=== PATIENT | female | born 1950 | race Caucasian/White ===

== ENCOUNTER → 2017-03-01 | Outpatient (CLI) | payer MEDICARE ==
--- NOTE | 2017-03-01 11:57 | MM ---
Reason for exam: additional evaluation requested from abnormal screening. Last mammogram was performed less than 1 month ago. History: Benign excisional biopsy of the left breast, 2010. Physical Findings: Nurse did not find any significant physical abnormalities on exam. MG 3D Work Up W/Cad KSENIA Bilateral LM view(s) were taken. CC with magnification and LM with magnification view(s) were taken of the right breast. Spot compression MLO view(s) were taken of the left breast. Prior study comparison: February 16, 2017, bilateral MG screening mammo w CAD. The breast tissue is heterogeneously dense. This may lower the sensitivity of mammography. There is a 5mm group of calcifications in the central outer right breast not seen on priors. No suspicious abnormality on the left breast. The previously seen abnormality on the left improves on additional views. These results were verbally communicated with the patient and result sheet given to the patient on 03/01/17. ASSESSMENT: Suspicious, BI-RAD 4 RECOMMENDATION: Stereotactic core biopsy of the right breast. Called with mammographic findings and has scheduled an appointment for the patient for 03/09/17 at 11:[address] Nuñez. PRELIMINARY REPORT CALLED AND FAXED TO DR. NUÑEZ ON 03/01/17.
== END | disposition home or self-care (01) ==
LOC: RADMAMWWP 10:08
PROVIDERS: ATTEND Family Medicine
DX: R92.8 Other abnormal and inconclusive findings on diagnostic imaging of breast (principal)
CPT/HCPCS: G0204; G0279

== ENCOUNTER → 2017-04-13 | Day surgery (SDC) | payer MEDICARE ==
[2017-04-13 07:20] VITALS: RESP 16; BMI 23.9
[2017-04-13 08:55] VITALS: BP 129/75; PULSE 69; TEMP 98.2
--- NOTE | 2017-04-13 09:43 | PCN ---
PROCEDURE NOTE The patient is a 66-year-old white female who underwent a bilateral mammogram which revealed an area of concern in the right breast. The lesion is in the mid-depth of the breast, closer to the lateral area of the breast. The patient had an area of microcalcifications of concern at this site in the right breast. The patient had undergone physical examination and on examination, no dominant mass or nodules of concern were identified in either breast and no axillary adenopathy of concern in either breast. The patient was taken to the stereotactic core biopsy room where after review of the mammogram, it was determined that the area of concern would be approached via a lateral to medial approach. The patient was placed in the stereo unit and the area of concern was identified. The skin was prepped using Betadine; 1% lidocaine was used to anesthetize the area of concern. A vacuum assisted needle was driven to the correct coordinates and pre fire views were obtained. The pre fire views appeared that the needle would be in the correct location. The needle was fired and postfire views were obtained. The needle was indeed in the correct location and multiple core biopsies were obtained from the 3 o'clock to 8 o'clock position. Radiograph of the specimen revealed that the area of calcifications had been obtained. Following this, a marking clip was placed. The radiograph revealed that the marking clip was in the correct location. The patient tolerated the procedure in stable condition. Specimen was sent to Pathology and the patient will follow up with Dr. Iraheta next week. There were no complications with the procedure. The marking device that was placed is a secure sophia. MMODL / IJN: [id number] /
--- NOTE | 2017-04-13 11:40 | MM ---
Stereotactic core biopsy right breast. HISTORY: Microcalcifications. The calcifications in question within the right breast were targeted by the undersigned. The examination was performed by the surgeon. Specimen radiograph demonstrates numerous calcifications within the specimen submitted. Post procedural mammogram demonstrates appropriate deployment of radiopaque clip marker. The patient tolerated the procedure well and left the department in stable condition. Pathology results are pending. IMPRESSION: Successful stereotactic core biopsy right breast with pathology results pending. Pathology Results: Benign BREAST, RIGHT, SITE A, CORE BIOPSY: FIBROCYSTIC CHANGES INCLUDING CYSTS, FIBROSIS, APOCRINE METAPLASIA AND CALCIUM OXALATE CRYSTALS. Recommendation Follow up mammogram of the right breast in 6 months. DAINA
== END ==
LOC: RADMAMWWP 06:47
PROVIDERS: ATTEND Surgery
DX: N60.31 Fibrosclerosis of right breast (principal); N60.81 Other benign mammary dysplasias of right breast; R92.1 Mammographic calcification found on diagnostic imaging of breast; R92.0 Mammographic microcalcification found on diagnostic imaging of breast; Z88.1 Allergy status to other antibiotic agents; Z88.0 Allergy status to penicillin
CPT/HCPCS: 88305; 19081; A4648; J2001

== ENCOUNTER → 2018-07-03 | Outpatient (CLI) | payer MEDICARE ==
--- NOTE | 2018-07-03 13:41 | MM ---
Reason for exam: screening (asymptomatic). Last mammogram was performed 1 year and 4 months ago. History: Patient is postmenopausal. Benign MG stereo VAD BX RT of the right breast, April 13, 2017. Benign excisional biopsy of the left breast, 2010. Took hormonal contraceptives for 2 years. Physical Findings: A clinical breast exam by your physician is recommended on an annual basis and results should be correlated with mammographic findings. MG 3D Screening Mammo W/Cad Bilateral CC and MLO view(s) were taken. Prior study comparison: March 01, 2017, bilateral MG 3d work up w/cad KSENIA. February 16, 2017, bilateral MG screening mammo w CAD. The breast tissue is heterogeneously dense. This may lower the sensitivity of mammography. Benign appearing bilateral calcifications. Previous mammotome biopsy in the right breast. ASSESSMENT: Benign, BI-RAD 2 RECOMMENDATION: Routine screening mammogram of both breasts in 1 year.
== END ==
LOC: RADMAMWWP 06:45
PROVIDERS: ATTEND Family Medicine
DX: Z12.31 Encounter for screening mammogram for malignant neoplasm of breast (principal)
CPT/HCPCS: 77063; 77067

== ENCOUNTER → 2019-10-10 | Outpatient (CLI) | payer MEDICARE ==
--- NOTE | 2019-10-14 07:56 | MM ---
Reason for exam: screening (asymptomatic). Last mammogram was performed 1 year and 3 months ago. History: Patient is postmenopausal. Benign MG stereo VAD BX RT of the right breast, April 13, 2017. Benign excisional biopsy of the left breast, 2010. Took hormonal contraceptives for 2 years. Physical Findings: A clinical breast exam by your physician is recommended on an annual basis and results should be correlated with mammographic findings. MG Screening Mammo w CAD Bilateral CC and MLO view(s) were taken. Prior study comparison: July 03, 2018, bilateral MG 3d screening mammo w/cad. March 01, 2017, bilateral MG 3d work up w/cad KSENIA. The breast tissue is heterogeneously dense. This may lower the sensitivity of mammography. Previous mammotome biopsy in the right breast. Benign secretory calcifications. No significant changes when compared with prior studies. ASSESSMENT: Negative, BI-RAD 1 RECOMMENDATION: Routine screening mammogram of both breasts in 1 year.
== END | disposition home or self-care (01) ==
LOC: RADMAMWWP 07:04
PROVIDERS: ATTEND Family Medicine
DX: Z12.31 Encounter for screening mammogram for malignant neoplasm of breast (principal)
CPT/HCPCS: 77067

== ENCOUNTER → 2020-08-04 | Outpatient (CLI) | payer MEDICARE ==
--- NOTE | 2020-08-04 16:31 | BD ---
EXAMINATION TYPE: Axial Bone Density DATE OF EXAM: 08/04/2020 COMPARISON: NONE CLINICAL HISTORY: 69 YR OLD FEMALE.....ICD-10 CODE: M85.80 DISORDER OF BONE Height: 61.5 Weight: 141 FRAX RISK QUESTIONS: Secondary Osteoporosis: YES 3. Menopause before 45: YES RISK FACTORS HISTORY OF: Family History of Osteoporosis: YES, MOTHER Active: YES Diet low in dairy products/other sources of calcium: YES Postmenopausal woman: YES, AT ABOUT 37 YRS OLD, TOTAL Hyperparathyroidism: NO Adrenal Insufficiency: NO MEDICATIONS: Additional Medications: DIABETIC MEDS, JARDIANCE, JANUVIA, VIT D AND CALCIUM, STATIN FOR CHOLESTEROL, REFLUX MEDS Additional History: DIABETIC, CHOLESTEROL, REFLUX EXAM MEASUREMENTS: Bone mineral densitometry was performed using the [email or web address] System. Bone mineral density as measured about the Lumbar spine is: ----- L1-L4(G/cm2): 1.161 T Score Values are as follows: ----- L1: 0.1 ----- L2: -0.1 ----- L3: -0.9 ----- L4: 0.2 ----- L1-L4: -0.2 Bone mineral density FIRST BONE DENSITY AT [facility] Bone mineral density about the R hip (g/cm2): 0.973 Bone mineral density about the L hip (g/cm2): 0.910 T Score values are as follows: -----R Neck: -1.5 -----L Neck: -1.4 -----R Total: -0.3 -----L Total: -0.8 Bone mineral density FIRST BONE DENSITY AT [facility] FRAX%s: THERE IS A 10.1% CHANCE FOR A MAJOR OSTEOPOROTIC FX AND A 1.5% FOR HIP........PROBABILIT Y FOR FX IN 10 YRS TIME IMPRESSION: Osteopenia (T Score between -2.5 and -1). There is slightly increased risk of fracture and the patient may be considered for treatment. Re-Screen 2-5 years. NOTE: T-SCORE=SD OF THE YOUNG ADULT MEAN.
== END | disposition home or self-care (01) ==
LOC: RADBDWWP 07:04
PROVIDERS: ATTEND Family Medicine
DX: M85.80 Other specified disorders of bone density and structure, unspecified site (principal)
CPT/HCPCS: 77080

== ENCOUNTER → 2020-10-29 | Outpatient (CLI) | payer MEDICARE ==
--- NOTE | 2020-11-02 15:08 | MM ---
Reason for exam: screening (asymptomatic). Last mammogram was performed 1 year and 1 month ago. History: Patient is postmenopausal. Benign MG stereo VAD BX RT of the right breast, April 13, 2017. Benign excisional biopsy of the left breast, 2010. Took hormonal contraceptives for 2 years. Physical Findings: A clinical breast exam by your physician is recommended on an annual basis and results should be correlated with mammographic findings. MG 3D Screening Mammo W/Cad Bilateral CC and MLO view(s) were taken. Prior study comparison: October 10, 2019, bilateral MG screening mammo w CAD. July 03, 2018, bilateral MG 3d screening mammo w/cad. The breast tissue is heterogeneously dense. This may lower the sensitivity of mammography. Previous mammotome biopsy in the right breast. There is chronic nodularity in the right breast. Benign secretory calcifications. No significant changes when compared with prior studies. ASSESSMENT: Benign, BI-RAD 2 RECOMMENDATION: Routine screening mammogram of both breasts in 1 year.
== END | disposition home or self-care (01) ==
LOC: RADMAMWWP 07:39
PROVIDERS: ATTEND Family Medicine
DX: Z12.31 Encounter for screening mammogram for malignant neoplasm of breast (principal); Z78.0 Asymptomatic menopausal state; Z79.3 Long term (current) use of hormonal contraceptives
CPT/HCPCS: 77063; 77067

== ENCOUNTER → 2021-03-23 | Outpatient (CLI) | payer MEDICARE ==
--- NOTE | 2021-03-23 09:18 | CT ---
EXAMINATION TYPE: CT abdomen pelvis wo con DATE OF EXAM: 03/23/2021 HISTORY: Rt flank pain, frequent UTIs CT DLP: 318.8 mGycm. Automated Exposure Control for Dose Reduction was Utilized. TECHNIQUE: CT scan of the abdomen and pelvis is performed without oral or IV contrast. COMPARISON: NONE FINDINGS: Within the limitations of a non-contrast study, the following observations are made. LUNG BASES: No significant abnormality is appreciated. LIVER/GB: Cholecystectomy clips. PANCREAS: No significant abnormality is seen. SPLEEN: No significant abnormality is seen. ADRENALS: No significant abnormality is seen. KIDNEYS: No renal stones or hydronephrosis is seen bilaterally. Scattered bilateral pelvic phlebolith s. No intraluminal calculus in the bladder. BOWEL: Diverticula in the left and sigmoid colon without CT evidence for acute diverticulitis. No eunice picious small or large bowel dilatation. GENITAL ORGANS: No gross abnormality seen. LYMPH NODES: No greater than 1cm abdominal or pelvic lymph nodes are appreciated. OSSEOUS STRUCTURES: Mild/moderate multilevel spurring in the thoracolumbar spine. OTHER: Dakz-hb-vviaacpm calcified plaque of the aorta extends into branch vessels. IMPRESSION: No renal stones or hydronephrosis is seen bilaterally. No acute findings identified on no ncontrast CT.
== END | disposition home or self-care (01) ==
LOC: RADCTMAIN 07:54
PROVIDERS: ATTEND Urology
DX: R10.9 Unspecified abdominal pain (principal)
CPT/HCPCS: 74176

== ENCOUNTER → 2023-03-08 | Outpatient (CLI) | payer MEDICARE ==
--- NOTE | 2023-03-08 15:57 | P.GSHP ---
History of Present Illness H&P Date: 03/08/23 Chief Complaint: abnormal left breast mammogram Meghan is a 72 year old white female seen in consultation for Dr. Almendarez regarding an abnormal left breast mammogram. She underwent a bilateral mammogram and [id number]. This led to additional views of the left breast as wel l as a left breast ultrasound. The left breast ultrasound revealed a 1.3 x 1.2 cm irregular hypoechoic lesion with posterior shadowing for which a core biopsy was recommended. It was felt that this corresponded to the mammographic region of concern. On left breast diagnostic mammogram in 1.2 cm area of asymmetry was identified. This was also located at the 3 o'clock position. No lesions of co ncern were noted in the right breast. She does not feel anything of concern in either breast. She has had surgery on both breasts in the past which were benign. She is not complaining of any recent trauma or infection in the breast. She is not complaining of any nipple discharge or skin changes. Caffeine: 2 cups/day nicotien: none chocolate: no BCP: 10 years in remote past Family History: none for cancer Hormonal History: menarche: 10 breast fed: yes, age at first : 17 menopause: partial hysterectomy 37 hormones: none Surgical History: Appendectomy Partial hysterectomy Bilateral breast biopsies Cholecystectomy catarat surgery Medical HIstory: type II diabetic Social History: nicotine: none alcohol: none drugs: none - Constitutional Constitutional: Reports sweats - EENT Eyes: bilateral as per HPI Ears: bilateral: tinnitus Ears, nose, mouth and throat: Denies headache, Denies sore throat - Breasts Breasts: bilateral: as per HPI - Cardiovascular Cardiovascular: Denies chest pain, Denies shortness of breath - Respiratory Respiratory: Denies cough, Denies 7 - Gastrointestinal Gastrointestinal: Denies abdominal pain, Denies diarrhea, Denies nausea, Denies vomiting - Genitourinary (Female) Genitourinary: Denies dysuria, Denies hematuria - Menstruation Menstruation: Reports post hysterectomy - Musculoskeletal Musculoskeletal: Denies myalgias - Integumentary Integumentary: Denies pruritus, Denies rash - Neurological Neurological: Denies numbness, Denies weakness - Psychiatric Psychiatric: Denies anxiety, Denies depression - Endocrine Endocrine: Reports weight change, Denies fatigue - Hematologic/Lymphatic Comment: none - Allergic/Immunologic Allergic/Immunologic: Reports seasonal allergies Past Medical History Past Medical History: Diabetes Mellitus Additional Past Medical History / Comment(s): type 2 History of Any Multi-Drug Resistant Organisms: None Reported Past Surgical History: Appendectomy, Cholecystectomy, Hysterectomy Additional Past Surgical History / Comment(s): Hysterectomy 1986 Past Anesthesia/Blood Transfusion Reactions: No Reported Reaction Past Psychological History: No Psychological Hx Reported Past Alcohol Use History: Rare Past Drug Use History: None Reported Medications and Allergies Home Medications Medication Instructions Recorded Confirmed Type Cholecalciferol (Vitamin D3) 2,000 unit PO DAILY 04/07/17 04/13/17 History [Vitamin D3] Cholecalciferol (Vitamin D3) 50,000 unit PO WEEKLY 04/07/17 04/13/17 History [Vitamin D3] Cinnamon Bark [Cinnamon] 1,000 mg PO DAILY 04/07/17 04/13/17 History Empagliflozin/Linagliptin 1 each PO DAILY 04/07/17 04/13/17 History [Glyxambi 25 mg-5 mg Tablet] Famotidine 40 mg PO DAILY 04/07/17 04/13/17 History metFORMIN HCL [Glucophage] 500 mg PO BID 04/07/17 04/13/17 History Allergies Allergy/AdvReac Type Severity Reaction Status Date / Time cefazolin [From [facility]] Allergy Swelling Verified 03/08/23 15:43 Penicillins Allergy Swelling Verified 03/08/23 15:43 Surgical - Exam - General no distress - Eyes normal ocular movement - Neck trachea midline - Respiratory normal respiratory effort, clear to auscultation - Cardiovascular Rhythm: regular Heart Sounds: normal: S1, S2 - Abdomen Abdomen: soft, non tender, no guarding, no rigid, no rebound - Integumentary normal turgor - Neurologic no disoriented, no combative - Musculoskeletal normal gait - Psychiatric oriented to time, oriented to person, oriented to place, speech is normal, memory intact Breast Exam: BRA: 38D Inspection: Breast right slightly smaller than left breast, bilateral grade 2/3 ptosis Palpation: Right breast: Multi-positional exam no dominant masses or nodules of concern Right axilla: No adenopathy of concern Left breast: Multi-positional exam fibrocystic changes no discrete dominant masses or nodules of concern, particular tension at 3:00 no discrete lesions of concern Left axilla: No adenopathy of concern Results Mammogram and ultrasound results reviewed Assessment and Plan Assessment: Impression: Abnormal left breast mammogram and ultrasound at 3:00 Plan: Left breast ultrasound-guided core biopsy with appointment to follow this CC: Dr. Almendarez
== END ==
LOC: WWCWWP 15:07
PROVIDERS: ATTEND Surgery
DX: R92.8 Other abnormal and inconclusive findings on diagnostic imaging of breast (principal); E11.9 Type 2 diabetes mellitus without complications; Z79.84 Long term (current) use of oral hypoglycemic drugs; Z88.0 Allergy status to penicillin; Z88.1 Allergy status to other antibiotic agents; Z79.85 Long-term (current) use of injectable non-insulin antidiabetic drugs

== ENCOUNTER → 2023-03-22 | Day surgery (SDC) | payer MEDICARE ==
--- NOTE | 2023-03-27 10:58 | MM ---
Reason for Exam: Post Procedure Mammogram. Last screening mammogram was performed 2 month(s) ago. Patient History: Menarche at age 10. First Full-Term at age 17. Hysterectomy at age 36. Postmenopausal. Patient used Hormonal Contraceptives for 2 years. 2010, Benign Excisional Biopsy on the left side. 04/13/2017, Benign Core Biopsy on the right side. Risk Values: Mini 5 year model risk: 2.1%. NCI Lifetime model risk: 5.1%. Prior Study Comparison: 07/03/2018 Bilateral Screening Mammogram, [facility]. 10/10/2019 Bilateral Screening Mammogram, [facility]. 10/29/2020 Bilateral Screening Mammogram, [facility]. 01/16/2023 Bilateral Screening Mammogram, [facility]. Tissue Density: Left: The breast tissue is heterogeneously dense. This may lower the sensitivity of mammography. Pathology Description: Location: 3 o'clock. Marker Left Behind. Needle Type: Mammotome Cores: 5 Skin Nicks: 1 Gauge: 13 The procedure of ultrasound guided core biopsy was explained to the patient. Benefits, alternatives, and risks were discussed. An informed consent was then obtained. The patient was placed in supine positioning for imaging and for the procedure. The overlying skin was prepped and draped in usual sterile fashion. Lidocaine buffered with bicarbonate was used as anesthetic into the skin and subcutaneous tissue up to area of concern in the left breast. A janneth was made with surgical scalpel. Under ultrasound guidance, a 12-gauge vacuum assisted biopsy gun device was used to obtain 5 core samples. Following this, a biopsy clip was left in lesion. The patient tolerated the procedure well without any immediate complication. The patient was kept in the radiology department for short stay after the procedure and then discharged home in stable condition. Postprocedure mammogram: The patient was transferred to mammography for physician ordered post procedure mammogram for clip placement verification. Impression: Successful, uncomplicated ultrasound guided core biopsy of area of concern in the left breast breast, full pathology results to follow. Pathology Results: Result: Malignant, Invasive ductal carcinoma. 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 See Surgical Pathology Cancer Case Summary and Comment. Overall Assessment: Malignant Assessment: MG diagnostic mammo LT wo CAD. - Left: Known biopsy proven malignancy, BI-RAD 6. Management: Surgical Consultation of the left breast. Electronically signed and approved by: Samir Chairez DO
== END ==
LOC: RADUSWWP 07:20
PROVIDERS: ATTEND Surgery
DX: C50.812 Malignant neoplasm of overlapping sites of left female breast (principal); Z12.31 Encounter for screening mammogram for malignant neoplasm of breast; Z92.0 Personal history of contraception; Z17.0 Estrogen receptor positive status [ER+]
CPT/HCPCS: 88305; 88342; 88341; 77065; 19083; A4648

== ENCOUNTER → 2023-04-05 | Outpatient (CLI) | payer MEDICARE ==
[2023-04-05 11:05] VITALS: BP 141/85; PULSE 72; RESP 18; TEMP 98.2
--- NOTE | 2023-04-05 11:09 | P.PN ---
Subjective Progress Note Date: 04/05/23 Principal diagnosis: left breast stage IA invasive ductal cancer abnormal left breast mammogram Meghan is a 72 year old white female seen in consultation for Dr. Almendarez regarding an abnormal left breast mammogram. She underwent a bilateral mammogram and [id number]. This led to additional views of the left breast as well as a left breast ultrasound. The left breast ultrasound revealed a 1.3 x 1.2 cm irregular hypoechoic lesion with posterior shadowing for which a core bio psy was recommended. It was felt that this corresponded to the mammographic region of concern. On left breast diagnostic mammogram in 1.2 cm area of asymmetry was identified. This was also located at the 3 o'clock position. No lesions of concern were noted in the right breast. She does not feel anything of concern in either breast. She has had surgery on both breasts in the past which were benign. She is not complaining of any recent trauma or infection in the breast. She is not complaining of any nipple discharge or skin changes. ultrasound core biopsy done on 03-22-23 pathology invasive ductal cancer [id number]+Her2- presentation at tumor board on 04-04-23 lumpectomy, SNB, oncotype for path, recommend aromitase inhibitor and radiation Caffeine: 2 cups/day nicotien: none chocolate: no BCP: 10 years in remote past Family History: none for cancer Hormonal History: menarche: 10 breast fed: yes, age at first : 17 menopause: partial hysterectomy 37 hormones: none Surgical History: Appendectomy Partial hysterectomy Bilateral breast biopsies Cholecystectomy catarat surgery Medical HIstory: type II diabetic Social History: nicotine: none alcohol: none drugs: none - Constitutional Constitutional: Reports sweats - EENT Eyes: bilateral as per HPI Ears: bilateral: tinnitus Ears, nose, mouth and throat: Denies headache, Denies sore throat - Breasts Breasts: bilateral: as per HPI - Cardiovascular Cardiovascular: Denies chest pain, Denies shortness of breath - Respiratory Respiratory: Denies cough - Gastrointestinal Gastrointestinal: Denies abdominal pain, Denies diarrhea, Denies nausea, Denies vomiting - Genitourinary (Female) Genitourinary: Denies dysuria, Denies hematuria - Menstruation Menstruation: Reports post hysterectomy - Musculoskeletal Musculoskeletal: Denies myalgias - Integumentary Integumentary: Denies pruritus, Denies rash - Neurological Neurological: Denies numbness, Denies weakness - Psychiatric Psychiatric: Denies anxiety, Denies depression - Endocrine Endocrine: Reports weight change, Denies fatigue - Hematologic/Lymphatic Comment: none - Allergic/Immunologic Allergic/Immunologic: Reports seasonal allergies Past Medical History Past Medical History: Diabetes Mellitus Additional Past Medical History / Comment(s): type 2 History of Any Multi-Drug Resistant Organisms: None Reported Past Surgical History: Appendectomy, Cholecystectomy, Hysterectomy Additional Past Surgical History / Comment(s): Hysterectomy 1987 Past Anesthesia/Blood Transfusion Reactions: No Reported Reaction Past Psychological History: No Psychological Hx Reported Past Alcohol Use History: Rare Past Drug Use History: None Reported Medications and Allergies Home Medications Medication Instructions Recorded Confirmed Type Cholecalciferol (Vitamin D3) 2,000 unit PO DAILY 04/07/17 04/13/17 History [Vitamin D3] Cholecalciferol (Vitamin D3) 50,000 unit PO WEEKLY 04/07/17 04/13/17 History [Vitamin D3] Cinnamon Bark [Cinnamon] 1,000 mg PO DAILY 04/07/17 04/13/17 History Empagliflozin/Linagliptin 1 each PO DAILY 04/07/17 04/13/17 History [Glyxambi 25 mg-5 mg Tablet] Famotidine 40 mg PO DAILY 04/07/17 04/13/17 History metFORMIN HCL [Glucophage] 500 mg PO BID 04/07/17 04/13/17 History Allergies Allergy/AdvReac Type Severity Reaction Status Date / Time cefazolin [From [facility]] Allergy Swelling Verified 03/08/23 15:43 Penicillins Allergy Swelling Verified 03/08/23 15:43 Objective - Vital Signs Vital signs: Vital Signs Temp 98.2 F 04/05/23 10:47 Pulse 72 04/05/23 10:47 Resp 18 04/05/23 10:47 BP 141/85 04/05/23 10:47 Pulse Ox 97 04/05/23 10:47 FiO2 Intake & Output 04/04/23 04/05/23 04/05/23 18:59 06:59 18:59 Weight 62.596 kg - Constitutional General appearance: Present: cooperative - EENT Eyes: Present: EOMI ENT: Present: hearing grossly normal - Neck Neck: Present: normal ROM - Respiratory Respiratory: bilateral: CTA - Cardiovascular Rhythm: regular Heart sounds: normal: S1, S2 - Integumentary Integumentary: Present: normal turgor - Musculoskeletal Musculoskeletal: Present: gait normal - Psychiatric Psychiatric: Present: A&O x's 3, appropriate affect, intact judgment & insight - Additional findings Additional findings: Breast Exam: BRA: 38D Inspection: right breast slightly smaller than left breast, bilateral grade 2 /3 ptosis Palpation: Right breast: Multi-positional exam no dominant masses or nodules of concern Right axilla: No adenopathy of concern Left breast: Multi-positional exam fibrocystic changes no discrete dominant masses or nodules of concern, particular attention at 3:00 no discrete lesions of concern Left axilla: No adenopathy of concern Assessment and Plan Assessment: Impression: type 2 diabetes stage I left breast invasive ductal cancer Plan: left breast needle localization lumpectomy, possible onco-plastic tissue transfer, sentinal node injection on left with left sentinal node biopsy, possible left axillary node disection clearance DR. Almendarez
== END ==
LOC: WWCWWP 10:35
PROVIDERS: ATTEND Surgery
DX: R92.8 Other abnormal and inconclusive findings on diagnostic imaging of breast (principal); C50.912 Malignant neoplasm of unspecified site of left female breast; E11.9 Type 2 diabetes mellitus without complications; N64.89 Other specified disorders of breast; Z90.49 Acquired absence of other specified parts of digestive tract; Z88.0 Allergy status to penicillin; Z88.1 Allergy status to other antibiotic agents

== ENCOUNTER → 2023-05-17 | Outpatient (CLI) | payer MEDICARE ==
--- NOTE | 2023-05-17 13:01 | P.PN ---
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 Almendarez regarding an abnormal left breast mammogram. She underwent a bilateral mammogram and [id number]. This led to additional views of the left breast as well as a left breast ultrasound. The left breast ultrasound revealed a 1.3 x 1.2 cm irregular hypoechoic lesion with posterior shadowing for which a core biopsy was recommended. It was felt that this corresponded to the mammographic region of concern. On left breast diagnostic mammogram in 1.2 cm area of asymmetry was identified. This was also located at the 3 o'clock position. No lesions of concern were noted in the right breast. She does not feel anything of concern in either breast. She has had surgery on both breasts in the past which were benign. She is not complaining of any recent trauma or infection in the breast. She is not complaining of any nipple discharge or skin changes. ultrasound core biopsy done on 03-22-23 pathology invasive ductal cancer [id number] G2ER+Pr+Her2- presentation at tumor board on 04-04-23 lumpectomy, SNB, oncotype for path, recommend aromatase inhibitor and radiation Caffeine: 2 cups/day nicotien: none chocolate: no BCP: 10 years in remote past Family History: none for cancer Hormonal History: menarche: 10 breast fed: yes, age at first : 17 menopause: partial hysterectomy 37 hormones: none Surgical History: Appendectomy Partial hysterectomy Bilateral breast biopsies Cholecystectomy catarat surgery Medical HIstory: type II diabetic Social History: nicotine: none alcohol: none drugs: none - Constitutional Constitutional: Reports sweats - EENT Eyes: bilateral as per HPI Ears: bilateral: tinnitus Ears, nose, mouth and throat: Denies headache, Denies sore throat - Breasts Breasts: bilateral: as per HPI - Cardiovascular Cardiovascular: Denies chest pain, Denies shortness of breath - Respiratory Respiratory: Denies cough - Gastrointestinal Gastrointestinal: Denies abdominal pain, Denies diarrhea, Denies nausea, Denies vomiting - Genitourinary (Female) Genitourinary: Denies dysuria, Denies hematuria - Menstruation Menstruation: Reports post hysterectomy - Musculoskeletal Musculoskeletal: Denies myalgias - Integumentary Integumentary: Denies pruritus, Denies rash - Neurological Neurological: Denies numbness, Denies weakness - Psychiatric Psychiatric: Denies anxiety, Denies depression - Endocrine Endocrine: Reports weight change, Denies fatigue - Hematologic/Lymphatic Comment: none - Allergic/Immunologic Allergic/Immunologic: Reports seasonal allergies Past Medical History Past Medical History: Diabetes Mellitus Additional Past Medical History / Comment(s): type 2 History of Any Multi-Drug Resistant Organisms: None Reported Past Surgical History: Appendectomy, Cholecystectomy, Hysterectomy Additional Past Surgical History / Comment(s): Hysterectomy 1986 Past Anesthesia/Blood Transfusion Reactions: No Reported Reaction Past Psychological History: No Psychological Hx Reported Past Alcohol Use History: Rare Past Drug Use History: None Reported Medications and Allergies Home Medications Medication Instructions Recorded Confirmed Type Cholecalciferol (Vitamin D3) 2,000 unit PO DAILY 04/07/17 04/13/17 History [Vitamin D3] Cholecalciferol (Vitamin D3) 50,000 unit PO WEEKLY 04/07/17 04/13/17 History [Vitamin D3] Cinnamon Bark [Cinnamon] 1,000 mg PO DAILY 04/07/17 04/13/17 History Empagliflozin/Linagliptin 1 each PO DAILY 04/07/17 04/13/17 History [Glyxambi 25 mg-5 mg Tablet] Famotidine 40 mg PO DAILY 04/07/17 04/13/17 History metFORMIN HCL [Glucophage] 500 mg PO BID 04/07/17 04/13/17 History Allergies Allergy/AdvReac Type Severity Reaction Status Date / Time cefazolin [From [facility]] Allergy Swelling Verified 03/08/23 15:43 Penicillins Allergy Swelling Verified 03/08/23 15:43 Objective - Constitutional General appearance: Present: cooperative - EENT Eyes: Present: EOMI ENT: Present: hearing grossly normal - Neck Neck: Present: normal ROM - Respiratory Respiratory: bilateral: CTA - Cardiovascular Heart sounds: normal: S1, S2 - Gastrointestinal General gastrointestinal: Present: soft - Integumentary Integumentary: Present: normal turgor - Musculoskeletal Musculoskeletal: Present: gait normal - Psychiatric Psychiatric: Present: A&O x's 3, appropriate affect, intact judgment & insight - Additional findings Additional findings: Breast Exam: BRA: 38D Inspection: right breast slightly smaller than left breast, bilateral grade 2/3 ptosis Palpation: Right breast: Multi-positional exam no dominant masses or nodules of concern Right axilla: No adenopathy of concern Left breast: Multi-positional exam fibrocystic changes no discrete dominant masses or nodules of concern, particular attention at 3:00 no discrete lesions of concern Left axilla: No adenopathy of concern Assessment and Plan Assessment: Impression: type 2 diabetes stage I left breast invasive ductal cancer Plan: left breast needle localization lumpectomy, possible onco-plastic tissue transfer, sentinal node injection on left with left sentinal node biopsy, possible left axillary node disection clearance DR. Almendarez We have discussed choosing wisely sentinel node biopsy recommendations and the patient wishes to proceed with a sentinel node biopsy. Benefits of the procedure were discussed risk include but are not limited to bleeding, infection, reaction to the anesthetic. The possibility of positive margin which would require further resection was discussed. With a sentinel node biopsy the risk of decreased sensation to the upper arm or lymphedema or scapula were discussed. The patient and her understand and wish to proceed with a lumpectomy, and sentinel node biopsy.
[2023-05-17 14:07] VITALS: BP 128/74; PULSE 78; RESP 18; TEMP 98.1
== END ==
LOC: WWCWWP 12:42
PROVIDERS: ATTEND Surgery
DX: C50.912 Malignant neoplasm of unspecified site of left female breast (principal); E11.9 Type 2 diabetes mellitus without complications; N64.89 Other specified disorders of breast; Z79.84 Long term (current) use of oral hypoglycemic drugs; Z88.0 Allergy status to penicillin; Z88.1 Allergy status to other antibiotic agents; Z17.0 Estrogen receptor positive status [ER+]; Z79.85 Long-term (current) use of injectable non-insulin antidiabetic drugs

== ENCOUNTER 2023-05-30 08:57 | Day surgery (SDC) | payer MEDICARE ==
[~2023-05-30 08:57] MED LIST: HYDROmorphone 0.5 MG/0.5 ML SYRINGE IVP PRN; LIDOCAINE 1% (10MG/ML) FOR IV START INTRADERMA PRN; droPERidol 5 MG/2 ML VIAL IVP ONE
[2023-05-30 09:47] LABS: Glucose,Whole Blood 129 mg/dL (70-110)
[2023-05-30] MEDS: LACTATED RINGERS 1,000 ML IV SCH (09:54)
[2023-05-30] MEDS: LIDOCAINE 1% INJ 10MG/ML (20 ML MDV) SQ ONE ×3 (11:24→13:39)
[2023-05-30] MEDS: DEXAMETHASONE SOD PHOSPHATE 4 MG/ML 1 ML VIAL IV ONE (11:31)
[2023-05-30] MEDS: ONDANSETRON 4 MG/2 ML VIAL IVP ONE (11:31)
--- NOTE | 2023-05-30 11:32 | P.NAPBC ---
NAPBC Queries - NAPBC Queries Was patient's case review presented at [facility] tumor board? If no, comment.: Yes Was patient's pathology reviewed at [facility]? If no, comment.: Yes Was breast conservation surgery offered? If no, comment.: Yes Was sentinel node biopsy offered? If no, comment.: Yes Was diagnosis confirmed by percutaneous core biopsy? If no, comment.: Yes Is patient mastectomy patient?: No Was a preop referral to reconstructive surgeon offered?: No Clinical Stage: stage I left breast invasive ductal cancer [id number]-
[2023-05-30] MEDS: HEPARIN SODIUM,PORCINE 5,000 UNIT/ML 1 ML VIAL SQ PRN (11:33)
[2023-05-30] MEDS: MIDAZOLAM 2 MG/2 ML VIAL IVP ONE (11:39)
--- NOTE | 2023-05-30 12:03 | NM ---
EXAMINATION TYPE: NM sentinel node injection DATE OF EXAM: 05/30/2023 COMPARISON: NONE CLINICAL INDICATION: Female, 72 years old with history of C50.812 MALIGNANT NEOPLASM OF OVERLAPPING S ITES; TECHNIQUE AND FINDINGS: The procedure of sentinel lymph node injection was explained to the patient. The benefits, alternatives, and risks were discussed. An informed consent was then obtained. Overlying skin is cleaned with sterile alcohol. Following this, 509 uCi Tc99m Tilmanocept was inject ed in the upper outer aspect of the left nipple intradermally. The patient tolerated the procedure well without any immediate complication. The patient was kept in the radiology department for short stay after the procedure and then taken to surgery for surgical p rocedure what is presumed intraoperative gamma probe will be used for sentinel lymph node detection. IMPRESSION: Left breast radiotracer injection for sentinel node localization as above.
[2023-05-30] MEDS ORDERED: MIDAZOLAM 2 MG/2 ML VIAL ONE (12:08)
[2023-05-30] MEDS ORDERED: fentaNYL (PF) 50 MCG/ML 2 ML AMP ONE (12:08)
[2023-05-30] MEDS ORDERED: SUCCINYLCHOLINE CHLORIDE 200 MG/10 ML VIAL IV ONE (12:08)
[2023-05-30] MEDS ORDERED: PHENYLEPHRINE-0.9% NACL SYG 1,000 MCG/10 ML SYRINGE ONE (12:08)
[2023-05-30] MEDS ORDERED: ePHEDrine 50 MG/ML 1 ML VIAL ONE (12:08)
[2023-05-30] MEDS ORDERED: PROPOFOL 10 MG/ML 20 ML VIAL IV ONE (12:08)
[2023-05-30] MEDS ORDERED: LIDOCAINE 1% INJ 10MG/ML (20 ML MDV) ONE (12:08)
[2023-05-30] MEDS: VANCOMYCIN 1,000 MG in SODIUM CHLORIDE 0.9% 250 ML IVPB PRN (12:13)
--- NOTE | 2023-05-30 13:39 | P.OP ---
Date of Procedure: 05/30/23 Preoperative Diagnosis: Left breast invasive ductal carcinoma Postoperative Diagnosis: Same Procedure(s) Performed: Needle localization lumpectomy left breast, left sentinel node biopsy Anesthesia: OSIEL Surgeon: Denise Iraheta Estimated Blood Loss (ml): 5 IV fluids (ml): 300 Pathology: other (Left sentinel node biopsy, left breast tissue) Condition: stable Disposition: same day Indications for Procedure: Biopsy-proven left breast invasive ductal carcinoma Operative Findings: Fibrofatty breast tissue Description of Procedure: The patient was first seen by radiology in the radiology department. Needle localization and a magnetic seed were placed at the area of the tumor. Radiotracer was injected in the periareolar region. The patient was brought to the operative suite. Following induction of anesthesia the neoprobe was used to interrogate the axilla. Radioactivity was present in the axilla. The axilla was approached initially. Using the neoprobe the an incision was made over the area of greatest radioactivity. Dissection was carried down to this point and 2 radioactive lymph nodes were identified. The first was removed and had a 10- second count of 15,017, the second was removed and had a radioactive count of 1418. The background count was 30. After we are sure that hemostasis was attained using the harmonic scalpel the wound was irrigated. The deep tissues were closed using 3-0 Vicryl suture. The skin was closed using 4-0 Monocryl. The area of the breast was approached. Using the probe for the magnetic seed localization the area closest to the seed was identified. An incision was made and carried down to the tip of the needle as well as the area of the magnetic seed activity. Wide excision was performed. The magnetic seed was noted to be in the specimen. The specimen was painted for orientation. Radiograph of the specimen revealed the area of concern had been removed. Posterior dissection was performed onto the pectoralis muscle and a new posterior margin was obtained. Titanium clips were placed in the cavity. The cavity was able to be closed primarily using 3-0 Vicryl suture. The subcutaneous tissue was closed using 3-0 Vicryl suture. The skin was closed using a 4-0 Monocryl subcuticular suture. Surgical glue was applied. The patient tolerated the procedure in stable condition. All instrument and sponge counts were correct at the end of the case.
[2023-05-30 13:58] LABS: Glucose,Whole Blood 153 mg/dL (70-110)
[2023-05-30 14:04] VITALS: TEMP 97.9
[2023-05-30 15:03] VITALS: BP 128/75; PULSE 83; RESP 18
--- NOTE | 2023-06-08 09:31 | MM ---
Pathology Description: Needle Type: 5 cm Koadina Informed consent was obtained and all the patient's questions were answered. The lesion in question was localized mammographically. The standard sterile technique was utilized, as well as appropriate local anesthesia with 1% Lidocaine and bicarbonate. Localization needle followed by placement of a guidewire was performed under mammographic guidance. Verification images demonstrate appropriate deployment of the guidewire. The patient tolerated the procedure well and left the department in stable condition. Specimen radiograph demonstrates the mass, microclip marker, guidewire and magnetic clip to reside within the specimen. IMPRESSION: Successful needle localization and open biopsy left breast with pathology results pending. Pathology Results: Result: Malignant, Invasive ductal carcinoma. A. LEFT SENTINEL LYMPH NODE #1, DISSECTION: Four sentinel lymph nodes, all negative for metastatic carcinoma (see comment). B. LEFT SENTINEL LYMPH NODE #2, DISSECTION: Two sentinel lymph nodes, all negative for metastatic carcinoma (see comment). C. DESIGNATED "NEW POSTERIOR MARGIN LEFT BREAST", EXCISION: Benign mammary fibroadipose tissue and skeletal muscle with benign new margin. D. DESIGNATED "NEW POSTERIOR MARGIN LEFT BREAST", EXCISION: Benign mammary fibroadipose tissue and benign new margin. E. LEFT BREAST, LUMPECTOMY: Invasive ductal carcinoma, grade 2, with focal intermediate to high grade ductal carcinoma in situ (DCIS). See surgical pathology cancer case summary and comment. All margins negative for in situ carcinoma and invasive carcinoma. Overall Assessment: Malignant Management: Surgical Consultation of the left breast. Electronically signed and approved by: Ishmael Lopez M.D. Radiologis
== END 2023-05-30 15:18 | disposition home or self-care (01) ==
LOC: OR 08:57
PROVIDERS: ATTEND Surgery
DX: C50.812 Malignant neoplasm of overlapping sites of left female breast (principal); E11.9 Type 2 diabetes mellitus without complications; I10 Essential (primary) hypertension; E78.5 Hyperlipidemia, unspecified; K21.9 Gastro-esophageal reflux disease without esophagitis; Z90.49 Acquired absence of other specified parts of digestive tract; Z90.710 Acquired absence of both cervix and uterus; Z98.890 Other specified postprocedural states; Z88.0 Allergy status to penicillin; Z88.1 Allergy status to other antibiotic agents; Z91.048 Other nonmedicinal substance allergy status
CPT/HCPCS: 19301; 38525; 38900; 88342; 88307; 88341; 76098; 19281; 38792; C1819; A9520; J2250; J3370; J0330; J1644; J1100; J2405; J2001; J3010; J2704; J2371

== ENCOUNTER → 2023-06-08 | Outpatient (CLI) | payer MEDICARE ==
--- NOTE | 2023-06-08 10:18 | P.PN ---
Progress Note - Text Progress Note Date: 06/08/23 Meghan is a 72 year old female status post left breast lumpectomy and SNB on 05-30-23. Tumor size 1.5 cm invasive ductal all margins (-). DCIS 3mm. 6 nodes examined all (-) for tumor. She is doing well at this time. Examination: lungs: clear Heart RRR Incision: clean and dry Impression: patient doing well post op Plan: Medical oncology Appointment radiation oncology Follow-up here in 4 months Patient to follow-up sooner any questions or concerns CC: Dr. Almendarez
[2023-06-08 10:23] VITALS: BP 131/63; PULSE 80; RESP 17; TEMP 97.8
== END ==
LOC: WWCWWP 09:24
PROVIDERS: ATTEND Surgery
DX: D05.12 Intraductal carcinoma in situ of left breast (principal); N63.20 Unspecified lump in the left breast, unspecified quadrant; Z98.890 Other specified postprocedural states; Z88.0 Allergy status to penicillin; Z91.048 Other nonmedicinal substance allergy status; Z88.1 Allergy status to other antibiotic agents

== ENCOUNTER → 2023-10-06 | Outpatient (CLI) | payer MEDICARE ==
[2023-10-06 08:32] VITALS: BP 108/57; PULSE 70; RESP 16; TEMP 98
--- NOTE | 2023-10-06 08:48 | P.PN ---
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 Almendarez regarding an abnormal left breast mammogram. She underwent a bilateral mammogram and 920 [id number]. This led to additional views of the left breast as well as a left breast ultrasound. The left breast ultrasound revealed a 1.3 x 1.2 cm irregular hypoechoic lesion with posterior shadowing for which a core biopsy was recommended. It was felt that this corresponded to the mammographic region of concern. On left breast diagnostic mammogram in 1.2 cm area of asymmetry was identified. This was also located at the 3 o'clock position. No lesions of concern were noted in the right breast. She does not feel anything of concern in either breast. She has had surgery on both breasts in the past which were benign. She is not complaining of any recent trauma or infection in the breast. She is not complaining of any nipple discharge or skin changes. ultrasound core biopsy done on 03-22-23 pathology invasive ductal cancer [id number]+Her2- presentation at tumor board on 04-04-23 lumpectomy, SNB, oncotype for path, recommend aromatase inhibitor and radiation lumpectomy on 05-30-23; 1.5 cm G2 IDC, DCIS all margins (-), 0/6 nodes involved radiation oncology note: 09-14-23 completed radiation on 08-14-23 note medical oncology, 06-21-23: recommended annestrazole is not having any concerns related to this; she is also on Fosomax She has no new lumps masses or nodules of concern, she does have some aching sensation in the UOQ of the left breast Caffeine: 2 cups/day nicotien: none chocolate: no BCP: 10 years in remote past Family History: none for cancer Hormonal History: menarche: 10 breast fed: yes, age at first : 17 menopause: partial hysterectomy 37 hormones: none Surgical History: Appendectomy Partial hysterectomy Bilateral breast biopsies Cholecystectomy catarat surgery left breast lumpectomy and SNB Medical HIstory: type II diabetic Social History: nicotine: none alcohol: none drugs: none - Constitutional Constitutional: Reports sweats - EENT Eyes: bilateral as per HPI Ears: bilateral: tinnitus Ears, nose, mouth and throat: Denies headache, Denies sore throat - Breasts Breasts: bilateral: as per HPI - Cardiovascular Cardiovascular: Denies chest pain, Denies shortness of breath - Respiratory Respiratory: Denies cough - Gastrointestinal Gastrointestinal: Denies abdominal pain, Denies diarrhea, Denies nausea, Denies vomiting - Genitourinary (Female) Genitourinary: Denies dysuria, Denies hematuria - Menstruation Menstruation: Reports post hysterectomy - Musculoskeletal Musculoskeletal: Denies myalgias - Integumentary Integumentary: Denies pruritus, Denies rash - Neurological Neurological: Denies numbness, Denies weakness - Psychiatric Psychiatric: Denies anxiety, Denies depression - Endocrine Endocrine: Reports weight change, Denies fatigue - Hematologic/Lymphatic Comment: none - Allergic/Immunologic Allergic/Immunologic: Reports seasonal allergies Past Medical History Past Medical History: Diabetes Mellitus Additional Past Medical History / Comment(s): type 2 History of Any Multi-Drug Resistant Organisms: None Reported Past Surgical History: Appendectomy, Cholecystectomy, Hysterectomy Additional Past Surgical History / Comment(s): Hysterectomy 1987 Past Anesthesia/Blood Transfusion Reactions: No Reported Reaction Past Psychological History: No Psychological Hx Reported Past Alcohol Use History: Rare Past Drug Use History: None Reported Medications and Allergies Home Medications Medication Instructions Recorded Confirmed Type Cholecalciferol (Vitamin D3) 2,000 unit PO DAILY 04/07/17 04/13/17 History [Vitamin D3] Cholecalciferol (Vitamin D3) 50,000 unit PO WEEKLY 04/07/17 04/13/17 History [Vitamin D3] Cinnamon Bark [Cinnamon] 1,000 mg PO DAILY 04/07/17 04/13/17 History Empagliflozin/Linagliptin 1 each PO DAILY 04/07/17 04/13/17 History [Glyxambi 25 mg-5 mg Tablet] Famotidine 40 mg PO DAILY 04/07/17 04/13/17 History metFORMIN HCL [Glucophage] 500 mg PO BID 04/07/17 04/13/17 History Allergies Allergy/AdvReac Type Severity Reaction Status Date / Time cefazolin [From [facility]] Allergy Swelling Verified 03/08/23 15:43 Penicillins Allergy Swelling Verified 03/08/23 15:43 Objective - Vital Signs Vital signs: Vital Signs Temp 98.0 F 10/06/23 08:22 Pulse 70 10/06/23 08:22 Resp 16 10/06/23 08:22 BP 108/57 10/06/23 08:22 Pulse Ox 97 10/06/23 08:22 FiO2 Intake & Output 10/05/23 10/06/23 10/06/23 18:59 06:59 18:59 Weight 62.596 kg - Constitutional General appearance: Present: cooperative - EENT Eyes: Present: EOMI ENT: Present: hearing grossly normal - Neck Neck: Present: normal ROM - Respiratory Respiratory: bilateral: CTA - Cardiovascular Heart sounds: normal: S1, S2 - Integumentary Integumentary: Present: normal turgor - Musculoskeletal Musculoskeletal: Present: gait normal - Psychiatric Psychiatric: Present: A&O x's 3, appropriate affect, intact judgment & insight - Additional findings Additional findings: Breast Exam: BRA: 38D Inspection: right breast slightly smaller than left breast, bilateral grade 2/3 ptosis Palpation: Right breast: Multi-positional exam no dominant masses or nodules of concern Right axilla: No adenopathy of concern Left breast: Multi-positional exam fibrocystic changes no discrete dominant masses or nodules of concern, post surgical and radiation changes Left axilla: No adenopathy of concern Assessment and Plan Assessment: Impression: type 2 diabetes stage I left breast invasive ductal cancer, status post lumpectomy and radiation therapy, patient on annestrazole Plan: Continue anastrozole Follow-up medical oncology Follow-up radiation oncology Bilateral mammogram in December with examination at that time Patient to follow-up sooner any questions or concerns Additional CC's: Bandar Almendarez
== END ==
LOC: WWCWWP 08:03
PROVIDERS: ATTEND Surgery
DX: C50.912 Malignant neoplasm of unspecified site of left female breast (principal); E11.9 Type 2 diabetes mellitus without complications; N64.89 Other specified disorders of breast; Z79.84 Long term (current) use of oral hypoglycemic drugs; Z88.0 Allergy status to penicillin; Z92.3 Personal history of irradiation; Z91.048 Other nonmedicinal substance allergy status; Z88.1 Allergy status to other antibiotic agents; Z17.0 Estrogen receptor positive status [ER+]; Z79.85 Long-term (current) use of injectable non-insulin antidiabetic drugs

== ENCOUNTER → 2023-12-27 | Outpatient (CLI) | payer MEDICARE ==
--- NOTE | 2024-01-16 11:19 | MM ---
EXAM: MG 3D diag mammo w/cad KSENIA DATE OF EXAM: 12/27/2023 8:35 AM COMPARISON STUDIES: 02/16/2017 Bilateral Screening Mammogram, [facility]. 03/01/2017 Bilateral Diagnostic Mammogram, [facility]. 07/03/2018 Bilateral Screening Mammogram, [facility]. 10/10/2019 Bilateral Screening Mammogram, [facility]. 10/29/2020 Bilateral Screening Mammogram, [facility]. 01/16/2023 Bilateral Screening Mammogram, [facility]. 03/22/2023 Left MG diagnostic mammo LT wo CAD., [facility]. PATIENT HISTORY:Female, 73 years old with history of C50.412 BR CANCER; , Menarche at age 10. First Full-Term at age 17. Hysterectomy at age 36. Postmenopausal. Breast cancer, left, age 72. Breast cancer, left, age 72. Previous chemotherapy at age 72. Patient used Hormonal Contraceptives for 2 years. 05/30/2023, Lumpectomy on the Left side. 05/30/2023, Malignant MG pre op needle loc LT on the left side. 03/22/2023, Malignant US biopsy breast VAD LT on the left side. 2010, Benign Excisional Biopsy on the left side. 04/13/2017, Benign Core Biopsy on the right side. , RISK CALCULATION: TISSUE DENSITY: There are scattered areas of fibroglandular density. FINDINGS: Left breast surgical clips. There is no suspicious group of microcalcifications or new suspicious mass. Benign-appearing calcifications left breast. No new suspicious masses, calcifications or distortions. ASSESSMENT: 2 - Benign RECOMMENDATION: 1. Diagnostic Mammogram Bilateral in 6 Months . COMMENTS: Results were given to the patient verbally at the time of exam. Patient should continue monthly self-breast exams. A clinical breast exam by your physician is recommended on an annual basis. This exam should not preclude additional follow-up of suspicious palpable abnormalities. Note on Mini scores and lifetime risk: 1. A Mini score greater than 3% is considered moderate risk. If this is the case, consider specialist referral to assess eligibility for a risk reducing agent. 2. If overall lifetime risk for the development of breast cancer is 20% or higher, the patient may qualify for future screening with alternating mammogram and breast MRI. DAINA
== END | disposition home or self-care (01) ==
LOC: RADMAMWWP 08:02
PROVIDERS: ATTEND Radiology Radiation Oncology
DX: C50.412 Malignant neoplasm of upper-outer quadrant of left female breast
CPT/HCPCS: 77062; 77066

== ENCOUNTER → 2023-12-28 | Outpatient (CLI) | payer MEDICARE ==
--- NOTE | 2023-12-28 13:27 | USB ---
Reason for Exam: Additional evaluation requested from prior study. Patient History: Menarche at age 10. First Full-Term at age 17. Hysterectomy at age 36. Postmenopausal. Breast cancer, left, age 72. Breast cancer, left, age 72. Previous chemotherapy at age 72. Patient used Hormonal Contraceptives for 2 years. 05/30/2023, Lumpectomy on the Left side. 05/30/2023, Malignant MG pre op needle loc LT on the left side. 03/22/2023, Malignant US biopsy breast VAD LT on the left side. 2010, Benign Excisional Biopsy on the left side. 04/13/2017, Benign Core Biopsy on the right side. Technique: Method: Targeted. Prior Study Comparison: 10/29/2020 Bilateral Screening Mammogram, [facility]. 01/16/2023 Bilateral Screening Mammogram, [facility]. 03/22/2023 Left MG diagnostic mammo LT wo CAD., [facility]. Findings: The upper outer quadrant of the right breast, the axilla of the right breast and the retroareolar of the right breast were scanned. Targeted ultrasound upper outer quadrant 9:00 to 11:00 position including scanning of the subareolar region and axilla. Scattered dense tissue is present. No solid or cystic lesion or axillary lymphadenopathy.. Overall Assessment: Probably benign, BI-RAD 3 Management: Diagnostic Mammogram of both breasts in 6 months. Left breast to assess for any evolving posttreatment change. Right breast for short interval follow-up. A clinical breast exam by your physician is recommended on an annual basis and results should be correlated with mammographic findings. This exam should not preclude additional follow-up of suspicious palpable abnormalities. Results were given to the patient verbally at the time of exam. Electronically signed and approved by: Josey Cruz M.D. Radiologist
--- NOTE | 2023-12-29 09:10 | MM ---
Reason for Exam: Hx of breast cancer, conservation therapy. Last screening mammogram was performed less than 1 month ago. Patient History: Menarche at age 10. First Full-Term at age 17. Hysterectomy at age 36. Postmenopausal. Breast cancer, left, age 72. Breast cancer, left, age 72. Previous chemotherapy at age 72. Patient used Hormonal Contraceptives for 2 years. 05/30/2023, Lumpectomy on the Left side. 05/30/2023, Malignant MG pre op needle loc LT on the left side. 03/22/2023, Malignant US biopsy breast VAD LT on the left side. 2010, Benign Excisional Biopsy on the left side. 04/13/2017, Benign Core Biopsy on the right side. Prior Study Comparison: 01/16/2023 Bilateral Screening Mammogram, [facility]. 03/22/2023 Left MG diagnostic mammo LT wo CAD., [facility]. 12/27/2023 Bilateral MG 3D diag mammo w/cad [facility], [facility]. Tissue Density: Right: There are scattered areas of fibroglandular density. Findings: Analyzed By CAD. The exam is reviewed with the surgeon. There is a focal asymmetry at the upper outer quadrant right breast middle depth which appears more defined from prior studies. Additional spot compression and 3-D lateral views were performed. No definite persisting abnormality on the 3-D lateral or spot cc view. Overall Assessment: Incomplete: need additional imaging evaluation, BI-RAD 0 Management: Diagnostic Breast Ultrasound of the right breast. Electronically signed and approved by: Josey Cruz M.D. Radiologist
== END | disposition home or self-care (01) ==
LOC: RADMAMWWP 12:11
PROVIDERS: ATTEND Surgery
DX: Z85.3 Personal history of malignant neoplasm of breast

== ENCOUNTER → 2023-12-28 | Outpatient (CLI) | payer MEDICARE ==
[2023-12-28 11:22] VITALS: BP 138/69; PULSE 95; RESP 16; TEMP 98.3
--- NOTE | 2023-12-28 12:00 | P.PN ---
Subjective Progress Note Date: 12/28/23 Subjective Progress Note Date: 12-28-23 Left breast invasive ductal carcinoma stage Ia Principal diagnosis: left breast stage IA invasive ductal cancer abnormal left breast mammogram Meghan is a 73 year old white female seen in consultation for Dr. Almendarez regarding an abnormal left breast mammogram. She underwent [place] mammogram [place] [id number]. This led to additional views of the left breast as well as a left breast ultrasound. The left breast ultrasound revealed a 1.3 x 1.2 cm irregular hypoechoic lesion with posterior shadowing for which a core biopsy was recommended. It was felt that this corresponded to the mammographic region of concern. On left breast diagnostic mammogram a 1.2 cm area of asymmetry was identified. This was also located at the 3 o'clock position. No lesions of concern were noted in the right breast. She did not feel anything of concern in either breast. She had had surgery on both breasts in the past which were benign. She was not complaining of any recent trauma or infection in the breast. She was not complaining of any nipple discharge or skin changes. ultrasound core biopsy done on 03-22-23 pathology invasive ductal cancer [id number]- presentation at tumor board on 04-04-23 lumpectomy, SNB, oncotype for path, recommend aromatase inhibitor and radiation lumpectomy on 05-30-23; 1.5 cm G2 IDC, DCIS all margins (-), 0/6 nodes involved radiation oncology note: 09-14-23 completed radiation on 08-14-23 note medical oncology, 09-29-23: recommended annestrazole is not having any concerns related to this; she is also on Fosomax She has no new lumps masses or nodules of concern, she does have some aching sensation in the UOQ of the left breast Mammogram from 12-27-[address] Edmondson; recommend repeat left in 6 months and right additional views She is not complaining of any new lumps masses or nodules of concern in either breast. Caffeine: 2 cups/day nicotien: none chocolate: no BCP: 10 years in remote past Family History: none for cancer Hormonal History: menarche: 10 breast fed: yes, age at first : 17 menopause: partial hysterectomy 37 hormones: none Surgical History: Appendectomy Partial hysterectomy Bilateral breast biopsies Cholecystectomy catarat surgery left breast lumpectomy and SNB Medical HIstory: type II diabetic Social History: nicotine: none alcohol: none drugs: none - Constitutional Constitutional: Reports sweats - EENT Eyes: bilateral as per HPI Ears: bilateral: tinnitus Ears, nose, mouth and throat: Denies headache, Denies sore throat - Breasts Breasts: bilateral: as per HPI - Cardiovascular Cardiovascular: Denies chest pain, Denies shortness of breath - Respiratory Respiratory: Denies cough - Gastrointestinal Gastrointestinal: Denies abdominal pain, Denies diarrhea, Denies nausea, Denies vomiting - Genitourinary (Female) Genitourinary: Denies dysuria, Denies hematuria - Menstruation Menstruation: Reports post hysterectomy - Musculoskeletal Musculoskeletal: Denies myalgias - Integumentary Integumentary: Denies pruritus, Denies rash - Neurological Neurological: Denies numbness, Denies weakness - Psychiatric Psychiatric: Denies anxiety, Denies depression - Endocrine Endocrine: Reports weight change, Denies fatigue - Hematologic/Lymphatic Comment: none - Allergic/Immunologic Allergic/Immunologic: Reports seasonal allergies Past Medical History Past Medical History: Diabetes Mellitus Additional Past Medical History / Comment(s): type 2 History of Any Multi-Drug Resistant Organisms: None Reported Past Surgical History: Appendectomy, Cholecystectomy, Hysterectomy Additional Past Surgical History / Comment(s): Hysterectomy 1987 Past Anesthesia/Blood Transfusion Reactions: No Reported Reaction Past Psychological History: No Psychological Hx Reported Past Alcohol Use History: Rare Past Drug Use History: None Reported Medications and Allergies Home Medications Medication Instructions Recorded Confirmed Type Cholecalciferol (Vitamin D3) 2,000 unit PO DAILY 04/07/17 04/13/17 History [Vitamin D3] Cholecalciferol (Vitamin D3) 50,000 unit PO WEEKLY 04/07/17 04/13/17 History [Vitamin D3] Cinnamon Bark [Cinnamon] 1,000 mg PO DAILY 04/07/17 04/13/17 History Empagliflozin/Linagliptin 1 each PO DAILY 04/07/17 04/13/17 History [Glyxambi 25 mg-5 mg Tablet] Famotidine 40 mg PO DAILY 04/07/17 04/13/17 History metFORMIN HCL [Glucophage] 500 mg PO BID 04/07/17 04/13/17 History Allergies Allergy/AdvReac Type Severity Reaction Status Date / Time cefazolin [From [facility]] Allergy Swelling Verified 03/08/23 15:43 Penicillins Allergy Swelling Verified 03/08/23 15:43 Objective - Vital Signs Vital signs: Vital Signs Temp 98.3 F 12/28/23 11:20 Pulse 95 12/28/23 11:20 Resp 16 12/28/23 11:20 BP 138/69 12/28/23 11:20 Pulse Ox 97 12/28/23 11:20 FiO2 Intake & Output 12/27/23 12/28/23 12/28/23 18:59 06:59 18:59 Weight 59.421 kg - Constitutional General appearance: Present: cooperative - EENT Eyes: Present: EOMI ENT: Present: hearing grossly normal - Neck Neck: Present: normal ROM - Respiratory Respiratory: bilateral: CTA - Cardiovascular Rhythm: regular Heart sounds: normal: S1, S2 - Integumentary Integumentary: Present: normal turgor - Musculoskeletal Musculoskeletal: Present: gait normal - Psychiatric Psychiatric: Present: A&O x's 3, appropriate affect, intact judgment & insight - Additional findings Additional findings: Breast Exam: BRA: 38D Inspection: right breast slightly smaller than left breast, bilateral grade 2/3 ptosis Palpation: Right breast: Multi-positional exam no dominant masses or nodules of concern Right axilla: No adenopathy of concern Left breast: Multi-positional exam fibrocystic changes no discrete dominant masses or nodules of concern, post surgical and radiation changes Left axilla: No adenopathy of concern Assessment and Plan Assessment: Impression: type 2 diabetes stage I left breast invasive ductal cancer, status post lumpectomy and radiation therapy, patient on annestrazole Plan: Continue anastrozole Follow-up medical oncology Follow-up radiation oncology right breast additional views superior then follow up left breast mammogram in 6 months and follow up Additional CC's: Bandar Almendarez
== END ==
LOC: WWCWWP 10:42
PROVIDERS: ATTEND Surgery
DX: Z48.817 Encounter for surgical aftercare following surgery on the skin and subcutaneous tissue (principal); C50.912 Malignant neoplasm of unspecified site of left female breast; N64.89 Other specified disorders of breast; E11.9 Type 2 diabetes mellitus without complications; Z92.3 Personal history of irradiation; Z88.0 Allergy status to penicillin; Z88.1 Allergy status to other antibiotic agents; Z79.84 Long term (current) use of oral hypoglycemic drugs; Z91.048 Other nonmedicinal substance allergy status; Z79.85 Long-term (current) use of injectable non-insulin antidiabetic drugs

== ENCOUNTER → 2024-01-04 | Outpatient (CLI) | payer MEDICARE ==
--- NOTE | 2024-01-04 11:28 | US ---
EXAMINATION TYPE: US carotid duplex BILAT DATE OF EXAM: 01/04/2024 COMPARISON: NONE CLINICAL INDICATION: Female, 73 years old with history of R09.89 US CARROT; bruit on the left, no str vianca TECHNIQUE: Carotid duplex ultrasound examination. Indirect Doppler criteria was utilized. FINDINGS: EXAM MEASUREMENTS: RIGHT: Peak Systolic Velocity (PSV) cm/sec ----- Right CCA: 81.2 ----- Right ICA: 85.5 ----- Right ECA: 111.0 ICA/CCA ratio: 1.0 RIGHT: End Diastole cm/sec ----- Right CCA: 18.2 ----- Right ICA: 25.8 ----- Right ECA: 0.0 LEFT: Peak Systolic Velocity (PSV) cm/sec ----- Left CCA: 72.5 ----- Left ICA: 88.8 ----- Left ECA: 58.7 ICA/CCA ratio: 1.2 LEFT: End Diastole cm/sec ----- Left CCA: 23.0 ----- Left ICA: 31.2 ----- Left ECA: 5.1 VERTEBRALS (direction of flow): Right Vertebral: Antegrade Left Vertebral: Antegrade Rhythm: Normal SHIPPER NOTES: Soft plaque seen bilaterally, more so on the ica left IMPRESSION: No significant hemodynamic stenosis. Criteria for Assigning % of Stenosis / Diameter reduction (Estimation based on the indirect measurements of the internal carotid artery velocities (ICA PSV). 1. Normal (no stenosis)=ICA PSV < 125 cm/s: ratio < 2.0: ICA EDV<40 cm/s. 2. Less than 50% stenosis=ICA PSV < 125 cm/s: ratio < 2.0: ICA EDV<40 cm/s. 3. 50 to 69% stenosis=ICA PSV of 125 to 230 cm/s: ration 2.0 ? 4.0: ICA EDV 40-100 cm/s. 4. Greater than 70% stenosis to near occlusion= ICA PSV > 230 cm/s: ratio > 4.0: ICA EDV > 100 cm/s. 5. Near occlusion= ICA PSV velocities may be low or undetectable: variable ratio and ICA EDV. 6. Total occlusion=unable to detect flow.
== END | disposition home or self-care (01) ==
LOC: RADUSWWP 07:37
PROVIDERS: ATTEND Family Medicine
DX: R09.89 Other specified symptoms and signs involving the circulatory and respiratory systems (principal)
CPT/HCPCS: 93880

== ENCOUNTER → 2024-06-27 | Outpatient (CLI) | payer MEDICARE ==
--- NOTE | 2024-06-27 11:43 | MM ---
Reason for Exam: Follow-up at short interval from prior study. Last screening mammogram was performed 6 month(s) ago. Patient History: Menarche at age 10. First Full-Term at age 17. Hysterectomy at age 36. Postmenopausal. Breast cancer, left, age 72. Breast cancer, left, age 72. Previous chemotherapy at age 72. Patient used Hormonal Contraceptives for 2 years. 05/30/2023, Lumpectomy on the Left side. 05/30/2023, Malignant MG pre op needle loc LT on the left side. 03/22/2023, Malignant US biopsy breast VAD LT on the left side. 2010, Benign Excisional Biopsy on the left side. 04/13/2017, Benign Core Biopsy on the right side. Tissue Density: The breasts are heterogeneously dense, which may obscure small masses. Findings: Analyzed By CAD. Postsurgical and posttreatment changes left breast with benign secretory calcifications redemonstrated. A benign oil cyst calcification superiorly and posteriorly in the left. Asymmetric density outer aspect right cc view middle to posterior depth is more defined but disperses on additional views compatible with superimposition shadow. Ongoing short interval follow-up of the left breast given recent treatment. Overall Assessment: Probably benign, BI-RAD 3 Management: Diagnostic Mammogram of the left breast in 6 months. As ongoing close surveillance follow-up for 3 years following breast cancer treatment. Results were given to the patient verbally at the time of exam. Patient should continue monthly self-breast exams. A clinical breast exam by your physician is recommended on an annual basis. This exam should not preclude additional follow-up of suspicious palpable abnormalities. [facility], , 06/27/2024 11:31 AM. Electronically signed and approved by: Josey Cruz M.D. Radiologist
== END | disposition home or self-care (01) ==
LOC: RADMAMWWP 10:36
PROVIDERS: ATTEND Surgery
DX: R92.333 Mammographic heterogeneous density, bilateral breasts (principal); Z85.3 Personal history of malignant neoplasm of breast; Z78.0 Asymptomatic menopausal state; Z92.0 Personal history of contraception
CPT/HCPCS: 77062; 77066

== ENCOUNTER → 2024-07-04 | Outpatient (CLI) | payer MEDICARE ==
[2024-07-04 12:13] VITALS: BP 116/74; PULSE 85; RESP 16; TEMP 97.9
--- NOTE | 2024-07-04 12:23 | P.PN ---
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 Almendarez regarding an abnormal left breast mammogram. She underwent a bilateral mammogram and [id number]. This led to additional views of the left breast as well as a left breast ultrasound. The left breast ultrasound revealed a 1.3 x 1.2 cm irregular hypoechoic lesion with posterior shadowing for which a core biopsy was recommended. It was felt that this corresponded to the mammographic region of concern. On left breast diagnostic mammogram in 1.2 cm area of asymmetry was identified. This was also located at the 3 o'clock position. No lesions of concern were noted in the right breast. She does not feel anything of concern in either breast. She has had surgery on both breasts in the past which were benign. She is not complaining of any recent trauma or infection in the breast. She is not complaining of any nipple discharge or skin changes. ultrasound core biopsy done on 03-22-23 pathology invasive ductal cancer [id number]- presentation at tumor board on 04-04-23 lumpectomy, SNB, oncotype for path, recommend aromatase inhibitor and radiation lumpectomy on 05-30-23 1.5 cm IDC, margins (-), DCIS margins (-0, 6 nodes all (-) note medical oncology 04-11-24 reviewed continue annestrazole, bone density being followed note radiation oncology reviewed: 01-04-24 completed 4256 cGy to the left breast on 08-14-23 She was diagnosed with a kidney stone recently and is on calcium and is wondering if she should take this. She will ask her urologist. Caffeine: 2 cups/day nicotien: none chocolate: no BCP: 10 years in remote past Family History: none for cancer Hormonal History: menarche: 10 breast fed: yes, age at first : 17 menopause: partial hysterectomy 37 hormones: none Surgical History: Appendectomy Partial hysterectomy Bilateral breast biopsies Cholecystectomy catarat surgery Medical HIstory: type II diabetic Social History: nicotine: none alcohol: none drugs: none - Constitutional Constitutional: Reports sweats - EENT Eyes: bilateral as per HPI Ears: bilateral: tinnitus Ears, nose, mouth and throat: Denies headache, Denies sore throat - Breasts Breasts: bilateral: as per HPI - Cardiovascular Cardiovascular: Denies chest pain, Denies shortness of breath - Respiratory Respiratory: Denies cough - Gastrointestinal Gastrointestinal: Denies abdominal pain, Denies diarrhea, Denies nausea, Denies vomiting - Genitourinary (Female) Genitourinary: Denies dysuria, Denies hematuria - Menstruation Menstruation: Reports post hysterectomy - Musculoskeletal Musculoskeletal: Denies myalgias - Integumentary Integumentary: Denies pruritus, Denies rash - Neurological Neurological: Denies numbness, Denies weakness - Psychiatric Psychiatric: Denies anxiety, Denies depression - Endocrine Endocrine: Reports weight change, Denies fatigue - Hematologic/Lymphatic Comment: none - Allergic/Immunologic Allergic/Immunologic: Reports seasonal allergies Past Medical History Past Medical History: Diabetes Mellitus Additional Past Medical History / Comment(s): type 2 History of Any Multi-Drug Resistant Organisms: None Reported Past Surgical History: Appendectomy, Cholecystectomy, Hysterectomy Additional Past Surgical History / Comment(s): Hysterectomy 1986 Past Anesthesia/Blood Transfusion Reactions: No Reported Reaction Past Psychological History: No Psychological Hx Reported Past Alcohol Use History: Rare Past Drug Use History: None Reported Medications and Allergies Home Medications Medication Instructions Recorded Confirmed Type Cholecalciferol (Vitamin D3) 2,000 unit PO DAILY 04/07/17 04/13/17 History [Vitamin D3] Cholecalciferol (Vitamin D3) 50,000 unit PO WEEKLY 04/07/17 04/13/17 History [Vitamin D3] Cinnamon Bark [Cinnamon] 1,000 mg PO DAILY 04/07/17 04/13/17 History Empagliflozin/Linagliptin 1 each PO DAILY 04/07/17 04/13/17 History [Glyxambi 25 mg-5 mg Tablet] Famotidine 40 mg PO DAILY 04/07/17 04/13/17 History metFORMIN HCL [Glucophage] 500 mg PO BID 04/07/17 04/13/17 History Allergies Allergy/AdvReac Type Severity Reaction Status Date / Time cefazolin [From [facility]] Allergy Swelling Verified 03/08/23 15:43 Penicillins Allergy Swelling Verified 03/08/23 15:43 Objective - Constitutional General appearance: Present: cooperative - EENT Eyes: Present: EOMI ENT: Present: hearing grossly normal - Neck Neck: Present: normal ROM - Respiratory Respiratory: bilateral: CTA - Cardiovascular Rhythm: regular Heart sounds: normal: S1, S2 - Integumentary Integumentary: Present: normal turgor - Musculoskeletal Musculoskeletal: Present: gait normal - Psychiatric Psychiatric: Present: A&O x's 3, appropriate affect, intact judgment & insight - Additional findings Additional findings: Breast Exam: BRA: 38D Inspection: right breast slightly smaller than left breast, bilateral grade 2/3 ptosis Palpation: Right breast: Multi-positional exam no dominant masses or nodules of concern Right axilla: No adenopathy of concern Left breast: Multi-positional exam fibrocystic changes no discrete masses or nodules of concern, post lumpectomy and radiation changes Left axilla: No adenopathy of concern Assessment and Plan Assessment: Impression: type 2 diabetes stage I left breast invasive ductal cancer bilateral mammogram on 06-27-24; BIRAD 3, repeat left breast mammogram in 6 months Plan: Left breast mammogram in 6 months with examination at that time Bilateral mammogram in 1 year Continue to follow with medical oncology and radiation oncology Patient recently diagnosed with kidney stone is following with urology CC: Dr. Nuñez
== END ==
LOC: WWCWWP 10:20
PROVIDERS: ATTEND Surgery
DX: C50.912 Malignant neoplasm of unspecified site of left female breast (principal); E11.9 Type 2 diabetes mellitus without complications; Z88.0 Allergy status to penicillin; Z88.1 Allergy status to other antibiotic agents; Z91.09 Other allergy status, other than to drugs and biological substances

== ENCOUNTER → 2024-07-11 | Outpatient (CLI) | payer MEDICARE ==
--- NOTE | 2024-07-11 16:02 | US ---
EXAMINATION TYPE: US kidneys/renal and bladder DATE OF EXAM: 07/11/2024 COMPARISON: CT 2020 CLINICAL INDICATION: Female, 73 years old with history of R10.9 UNSPEC ABDOMINAL PAIN; TECHNIQUE: Grayscale imaging of the bilateral kidneys and urinary bladder: FINDINGS: EXAM MEASUREMENTS: Right Kidney: 11.1 x 5.3 x 4.3 cm Left Kidney: 9.9 x 4.5 x 4.8 cm Right Kidney: No hydronephrosis or masses seen Left Kidney: No hydronephrosis or masses seen Bladder: wnl Bilateral Jets seen: Yes There is no evidence for hydronephrosis at this point in time. No nephrolithiasis is seen. No lópez s are identified. The urinary bladder is anechoic. IMPRESSION: No evidence for acute process. [facility], , 07/11/2024 4:00 PM
== END | disposition home or self-care (01) ==
LOC: RADUSWWP 15:36
PROVIDERS: ATTEND Family Medicine
DX: R10.9 Unspecified abdominal pain (principal)
CPT/HCPCS: 76770